=== PATIENT | male | born 1995 | race African-American/Black ===

== ENCOUNTER 2023-12-19 09:52 | Emergency (ER) | payer MEDICAID, OTHER ==
[~2023-12-19] VITALS: Ht 172.7 cm; Wt 77.5 kg
[2023-12-19 11:04] VITALS: BP 133/64; PULSE 105; RESP 16; TEMP 98; O2SAT 97
[2023-12-19] MEDS: methylPREDNISolone SOD SUCC 125 MG/2 ML VL IM ONE (11:34)
[2023-12-19] MEDS: KETOROLAC TROMETH 60MG/2ML VIAL IM ONE (11:34)
[2023-12-19] MEDS ORDERED: PENI500T2 PO (11:51)
== END 2023-12-19 11:55 | disposition home or self-care (01) ==
LOC: ER 09:52
DX: J02.9 Acute pharyngitis, unspecified (principal); F17.210 Nicotine dependence, cigarettes, uncomplicated; Z98.890 Other specified postprocedural states
CPT/HCPCS: 96372; 99284; J1885; J2930

== ENCOUNTER 2025-04-27 10:48 | Emergency (ER) | payer OTHER ==
[~2025-04-27] VITALS: Ht 175.3 cm; Wt 71.7 kg
[~2025-04-27 10:48] MED LIST: PENI500T2 PO
--- NOTE | 2025-04-27 13:29 | ED.PDOC ---
History of Present Illness HPI Comments 29 y/o M presents with 3x day history of throat pain. Pain is worse in the morning and with swallowing. Denies any fever, chills, shortness of breath, or further associated symptoms. Vitals: temperature of 99.1F, pulse of 84, respiratory rate of 20, blood pressure of 133/86, SpO2 of 99%RA. Past medical history: denies Past surgical history: hernia repair. HPI: Poor Historian. gemma: sore throat, normal, neck. pain w swallowing. wants abx. Patient is requesting antibiotics. REVIEW OF SYSTEMS: CONSTITUTIONAL: Denies acute: fever, diaphoresis, chills, generalized weakness. HEAD: Denies acute: headache, photophobia Eyes: Denies acute: Double vision, vision loss, eye pain, eye discharge. EARS: Denies acute: tinnitus, hearing loss, ear discharge, ear pain, THROAT: Denies acute: swelling, difficulty swallowing , pain with swallowing, change in voice. NECK: Denies acute: neck pain, neck swelling, stiff neck. HEART: Denies acute : chest pain, palpitations, LUNGS: Denies acute: SOB, wheezing, cough, hemoptysis ABDOMEN: Denies acute: abdominal pain, Nausea, Vomiting, diarrhea, melena , hematemesis, hematochezia SKIN: Denies acute: rash, redness, lesions, itchiness. EXTREMITIES: Denies acute: calf pain, numbness, tingling, weakness, denies pain in extremity. Denies acute: Low back pain. Neuro: Denies acute: focal neurological deficit, motor or sensory focal neurological deficit, tremors, seizure like activity, confusion, dizziness, change in mental status, loss of bowel or bladder function, cauda equina like symptoms. : Denies acute: dysuria, hematuria, flank pain, increase in urinary frequency. PSYCH: Denies acute: hallucination, suicidal ideation, homicidal ideation. PHYSICAL EXAM: General: ---no-----acute distress, awake and alert. Head: normocephalic, atraumatic. Neck: supple, trachea is midline, no swelling. Throat: Normal phonation. No erythema, no exudates, no swelling, no obstruction, no drooling, no unusual findings. Eyes:, no erythema, no purulent discharge, no proptosis, no icterus. Heart: regular rate, regular rhythm, no significant murmur appreciated. Lungs: no apparent respiratory distress, Able to speak in full sentences. No wheezing, no rhonchi, no crackles. No stridors Clear to auscultation bilaterally. Abdomen: non tender to palpation, non distended, soft, no guarding, no rebound, + bowel sounds. Neuro: Awake, Alert, oriented to name, self, situation, follows commands GCS=15. Speech is normal. Skin: no petechia, no purpura, no cyanosis, non-pale, not jaundice. Lower extremities: --no - Pitting edema no deformity, no focal swelling, no calf TTP. Makes eye contact. moves all four extremities. Face: no apparent facial droop. Ambulating in the ED independently. . No nuchal rigidity, Kernig's sign, Brudzinski's sign, no meningeal signs. ED COURSE: DISCLAIMER: This medical document was created using an electronic medical record system with voice recognition software and computerized dictation system. Although this document has been carefully reviewed, there might still be some phonetic and typographical errors. Occasional wrong-word or "sound-alike" substitutions may have occurred due to the inherent limitations of voice recognition software. These areas are purely typographical due to imperfections of the software programs and do not reflect any compromise in the patient's medical care. Please read the chart carefully and recognize, using context, where these substitutions have occurred. Chief Complaint: Sore Throat Time Seen by MD: 13:20 Primary Care Provider: unknown Allergies: Coded Allergies: NO KNOWN ALLERGIES (Unverified , 07/16/14) Home Meds Active Scripts Prednisone (Prednisone) 20 Mg Tab, 20 MG PO DAILY for 5 Days, #5 TAB Prov:SHAYAN AMIN DO 04/27/25 Amoxicillin & Pot Clavulanate (AUGMENTIN TABLET) 875 Mg Tb, 875 MG PO BID for 7 Days, #14 TAB Prov:SHAYAN AMIN DO 04/27/25 Penicillin V Potassium (Veetids) 500 Mg Tab, 1 TAB PO BID for 10 Days, #20 TAB 0 Refills Prov:NHAN MORIN CONSTRUCTION REPRESENTATIVE 12/19/23 Information Source: Patient Mode of Arrival: Ambulatory Past Medical History PAST MEDICAL HISTORY: Denies Surgical History: Hernia Repair Family History Family History: Unknown Social History Smoker: Cigarettes, Less Than 1 Pack/Day Alcohol: Occasionally Drugs: Denies Drug Use Lives In: Home Was a procedure done? Was a procedure done?: No Differential Dx Considerations may include: Pharyngitis, tonsillitis, retropharyngeal abscess, allergic reaction, angioedema, pharyngitis, X-Ray, Labs, Meds, VS Vital Signs Date Time Temp Pulse Resp B/P (MAP) Pulse Ox O2 Delivery O2 Flow Rate FiO2 04/27/25 16:11 98.1 76 18 122/68 (86) 98 98.1 04/27/25 16:11 76 18 04/27/25 10:50 99.1 84 20 133/86 (102) 99 99.1 Current Medications Medications (Trade) Dose Ordered Sig/Pk Route Start Time Stop Time Status Last Admin Dexamethasone Sodium Phosphate (Decadron Injection) 10 mg ONCE ONCE IM 04/27/25 13:30 04/27/25 13:31 DC 04/27/25 15:06 Time of 1ST Reevaluation: 13:50 Reevaluation 1ST: Unchanged Patient Education/Counseling: Diagnosis, Treatment Family Education/Counseling: No Family Present Comments Patient presented with the above HPI.--sore throat----workup was initiated. patient was found with the above mentioned diagnosis. Patient has no cough no fever and no findings in the throat to suggest infection. Patient demanding antibiotics. the following medications were ordered: please refer to order lists of meds and tests obtained by myself Dr. Amin. Patient ED course and VS have been stabilized. Patient has been reassessed in the ED and remained in a stable condition. Pertinent incidental findings were discussed with the patient and/or family. Patient/family voices understanding and is agreeable with plan. Patient has been observed in the ED adequate length of time to insure improvement/stability. Escalation of care considered: Consideration of escalation to observation or admission Patient was DISCHARGED home in a stable condition. All the reports of any imaging studies that were ordered by myself were reviewed by myself. Departure 1 Departure Time of Disposition: 15:17 Impression: Primary Impression: Sore throat Disposition: HOME / SELF CARE / HOMELESS Condition: Stable Additional Instructions: Additional instructions: You MUST follow-up with your primary care/family doctor in 1 to 2 days. If you are unable to see your primary care/family doctor, please return to our emergency room for re-assessment and re-evaluation in 1 to 2 days. Return to the emergency room here in our facility or to the nearest ER [facility] if your symptoms change or worsen. CONSULTATIONS: you MUST Follow-up for consultation as soon as possible with: -ENT doctor in 1-2 days. Please call for appointment You MUST call the consultants office yourself to make an appointment. You may need to arrange that through your insurance and/or your primary/family doctor. If you are unable to see the home sales consultant in 1 to 2 days, you must return to our emergency room (or any other ER of your choice) for re-assessment and re- evaluation. Adequate fluid hydration. e-Prescriptions Prednisone (Prednisone) 20 Mg Tab 20 MG PO DAILY for 5 Days, #5 TAB Prov: SHAYAN AMIN DO 04/27/25 Amoxicillin & Pot Clavulanate (AUGMENTIN TABLET) 875 Mg Tb 875 MG PO BID for 7 Days, #14 TAB Prov: SHAYAN AMIN DO 04/27/25 Discharged With: Self Critical Care Note Critical Care Time?: No I personally scribed for SHAYAN AMIN DO ([email or web address]) on 04/27/25 at 13:28. Electronically submitted by Wang Tinoco ([email or web address]). I personally scribed for SHAYAN AMIN DO ([email or web address]) on 04/27/25 at 14:17. Electronically submitted by Wang Tinoco ([email or web address]). SHAYAN AMIN DO Apr 27, 2025 13:28
[2025-04-27] MEDS: DexAMETHasone SOD PHOS 10MG/1ML VIAL INJ IM ONE (15:06)
[2025-04-27] MEDS ORDERED: PRED20TA2 PO (15:20)
[2025-04-27] MEDS ORDERED: AUG875T PO (15:20)
[2025-04-27 16:11] VITALS: BP 122/68; PULSE 76; RESP 18; TEMP 98.1; O2SAT 98
== END 2025-04-27 16:36 | disposition home or self-care (01) ==
LOC: ER 11:02
DX: J02.9 Acute pharyngitis, unspecified (principal); F17.210 Nicotine dependence, cigarettes, uncomplicated; Z98.890 Other specified postprocedural states
CPT/HCPCS: 96372; 99283; J1100